=== PATIENT | female | born 1990 | race Caucasian/White ===

== ENCOUNTER 2016-08-14 16:01 | Emergency (ER) | payer MEDICAID ==
[~2016-08-14] VITALS: Ht 160 cm; Wt 90.7 kg
[~2016-08-14 16:01] MED LIST: NAPR550T PO
--- OUTSIDE RECORDS SUMMARY | 2016-08-14 16:07 | XMS REPORT | Continuity of Care Document ---
Author Author [facility] Organization [facility] Address Unknown Phone Unavailable Care Team Providers Care Hospital Medical Assistant Name Role Phone NO, LOCAL PHYSICIAN PCP Unavailable Insurance Providers Payer Name Policy Number Subscriber Name Relationship Unknown Christopher Ruth 16 Self / Same As Patient Advance Directives Directive Response Recorded Date/Time Advance Directives No 04/10/16 10:21am Resuscitation Status Full Code 04/10/16 10:21am Chief Complaint and Reason for Visit Chief Complaint Lower Extremity Reason for Visit Sprain and strain of foot Problems Active Problems Medical Problem Onset Date Status Sprain and strain of foot Unknown Acute Medications Current Home Medications Medication Dose Units Route Directions Days/Qty Instructions Start Date Naproxen Sodium (Naproxen) 550 Mg 550 Mg Oral Every 12 Hours as needed for Foot Pain/Swelling 20 04/10/16 Social History Social History Problem Response Recorded Date/Time Alcohol Use Occasionally Uses 04/10/2016 10:21am Recreational Drug Use No 04/10/2016 10:21am Recent Foreign Travel No 04/10/2016 10:19am Recent Infectious Disease Exposure No 04/10/2016 10:19am Hospitalization with Isolation Denies 04/10/2016 10:19am Smoking Status Current Everyday Smoker 04/10/2016 10:21am Recent Hopitalizations No 04/10/2016 10:21am Hospitalization with Isolation Denies 04/10/2016 10:19am Query Response Start Date Stop Date Smoking Status Current Everyday Smoker Hospital Discharge Instructions No hospital discharge instructions. Plan of Care Discharge Date 04/10/16 11:20am Disposition 01 HOME, SELF-CARE Condition at Discharge Stable Instructions/Education Provided Foot Sprain (ED) Prescriptions See Medication Section Referrals ARNIE NICHOLSON DO - Functional Status No functional status results. Allergies, Adverse Reactions, Alerts Allergen Type Severity Reaction Status Last Updated PCN Allergy Unknown Active 04/10/16 Immunizations No immunization records. Vital Signs Acute Vital Signs Vital Response Date/Time Temperature (Fahrenheit) 97.9 degrees F (97.6 - 99.5) 04/10/2016 10:19am Temperature (Calculated Celsius) 36.07214 degrees C (36.4 - 37.5) 04/10/2016 10:19am Temperature Source Temporal 04/10/2016 10:19am Pulse Rate (adult) 94 bpm (60 - 90) 04/10/2016 10:19am Respiratory Rate 20 bpm (12 - 24) 04/10/2016 10:19am Pain Numeric Pain Scale 8 04/10/2016 10:19am Height (Feet) 5 feet 04/10/2016 10:19am Height (Inches) 3 inches 04/10/2016 10:19am Height (Calculated Centimeters) 160.139350 cm 04/10/2016 10:19am Weight (Pounds) 230 pounds 04/10/2016 10:19am Weight (Calculated Kilograms) 104.043329 kilograms 04/10/2016 10:19am Capillary Refill Capillary Refill Less Than 3 Seconds 04/10/2016 10:19am Height 5 ft 3 in Weight 230 lb Body Mass Index 40.7 kg/m^2 Results No known relevant diagnostic tests, laboratory data and/or discharge summary. Procedures No known history of procedures. Encounters Encounter Location Arrival/Admit Date Discharge/Depart Date Attending Provider Departed Emergency Room [facility] 04/10/16 9:48am 04/10 11:20am OXANA SMITH DO Recent Diagnosis
[2016-08-14] MEDS ORDERED: KETOROLAC 30 MG/ML VIAL IVP ONE (16:30)
[2016-08-14] MEDS ORDERED: ONDANSETRON 4 MG/2 ML (SDV) Z0FRAN IVP ONE (16:30)
[2016-08-14 16:34] LABS: BASOPHILS % (AUTO) 0 % (0-10); EOSINOPHILS # (AUTO) 0.3 10^3/uL (0.0-0.3); EOSINOPHILS % (AUTO) 3 % (0-10); LYMPHOCYTES # (AUTO) 2.8 X 10^3 (1.0-4.0); LYMPHOCYTES % (AUTO) 28 % (12-44); MEAN CORPUSCULAR HEMOGLOBIN 30 PG (25-34); MEAN CORPUSCULAR HGB CONC 34 G/DL (32-36); MEAN CORPUSCULAR VOLUME 89 FL (80-99); MONOCYTES # (AUTO) 0.8 X 10^3 (0.0-1.0); MONOCYTES % (AUTO) 8 % (0-12); NEUTROPHILS # (AUTO) 6.3 X 10^3 (1.8-7.8); NEUTROPHILS % (AUTO) 62 % (42-75); PLATELET COUNT 265 10^3/uL (130-400); RED BLOOD COUNT 4.22 10^6/uL (4.35-5.85); RED CELL DISTRIBUTION WIDTH 12.7 % (10.0-14.5); WHITE BLOOD COUNT 10.2 10^3/uL (4.3-11.0)
[2016-08-14 16:34] LABS: BILIRUBIN,URINE NEGATIVE (NEGATIVE); KETONES,URINE NEGATIVE (NEGATIVE); LEUKOCYTE ESTERASE ,URINE NEGATIVE (NEGATIVE); NITRITE,URINE NEGATIVE (NEGATIVE); PH,URINE 6 (5-9); PROTEIN,URINE 1+ (NEGATIVE); UROBILINOGEN,URINE NORMAL (NORMAL)
--- NOTE | 2016-08-14 16:40 | ED GU-Female ---
General Chief Complaint: Abdominal/GI Problems Stated Complaint: L SIDE PAIN, ABD PAIN Nursing Triage Note: PT C/O L FLANK PAIN RADIATING TO HER BELLY. SHE ALSO C/O NAUSEA AND FEVER. SHE DENIES VOMITING, DYSURIA, HEMATURIA. Nursing Sepsis Screen: No Definite Risk Source: patient Exam Limitations: no limitations History of Present Illness Time seen by provider: 16:39 Initial Comments To ER with left low back pain that radiates to the left lower abdomen. She reports that she had a fever at home but is unsure how high. She reports urinary frequency but no nausea or vomiting but no dysuria otherwise. She reports nausea but no vomiting. Symptoms began this morning. She has chronic diarrhea she states. Timing/Duration: just prior to arrival Severity/Quality: moderate Location: left flank Radiation: none Prior Genitourinary Problems: none Associated Symptoms: dysuria Allergies and Home Medications Allergies Uncoded Allergies: PCN (Allergy, Unknown, 04/10/16) Home Medications Naproxen Sodium 550 Mg Tablet #20 550 MG PO Q12H PRN PRN foot pain/swelling Prescribed by: OXANA SMITH on 04/10/16 1110 Constitutional: see HPINo chills, No fever EENTM: see HPI Respiratory: no symptoms reported Cardiovascular: no symptoms reported Genitourinary: see HPI frequency Musculoskeletal: no symptoms reported Skin: no symptoms reported Psychiatric/Neurological: No Symptoms Reported Past Ncxquyn-Rznzpi-Nbfijh Hx Patient Social History Alcohol Use: Denies Use Recreational Drug Use: No Smoking Status: Current Everyday Smoker Recent Foreign Travel: No Contact w/Someone Who Travel: No Recent Infectious Disease Expo: No Recent Hopitalizations: No Physical Abuse Screen: No Sexual Abuse: No Seasonal Allergies Seasonal Allergies: No Surgeries HX Surgeries: Yes Surgeries: Gallbladder, Tubal Ligation Respiratory Hx Respiratory Disorders: No Cardiovascular Hx Cardiac Disorders: Yes (DOES NOT TAKE MEDS) Cardiac Disorders: Hypertension Neurological Hx Neurological Disorders: No Reproductive System Hx Reproductive Disorders: No Genitourinary Hx Genitourinary Disorders: No Gastrointestinal Hx Gastrointestinal Disorders: No Musculoskeletal Hx Musculoskeletal Disorders: No Endocrine Hx Endocrine Disorders: No HEENT HX ENT Disorders: No Cancer Hx Cancer: No Psychosocial Hx Psychiatric Problems: Yes Behavioral Health Disorders: Anxiety, Bipolar, Depression Physical Exam Vital Signs Vital Sign - Last 12Hours 08/14/16 16:18 Temp 98.4 Pulse 85 Resp 16 B/P 155/89 Pulse Ox 97 O2 Delivery Room Air Capillary Refill : Less Than 3 Seconds General Appearance: WD/WN no apparent distress obese HEENT: PERRL/EOMI normal ENT inspection Neck: non-tender full range of motion Cardiovascular: regular rate, rhythm no murmur Respiratory: lungs clear normal breath sounds no respiratory distress no accessory muscle use Gastrointestinal: normal bowel sounds non tender soft Back: No CVA tenderness (R), CVA tenderness (L) Extremities: normal range of motion non-tender Neurologic/Psychiatric: alert normal mood/affect oriented x 3 Skin: normal color warm/dry Progress/Results/Core Measures Results/Orders Lab Results Laboratory Tests Test 08/14/16 16:17 08/14/16 16:24 Range/Units Urine Bacteria NEGATIVE /HPF Urine Bilirubin NEGATIVE NEGATIVE Urine Casts NONE /LPF Urine Clarity CLEAR Urine Color YELLOW Urine Crystals NONE /LPF Urine Culture Indicated NO Urine Glucose (UA) NEGATIVE NEGATIVE Urine Ketones NEGATIVE NEGATIVE Urine Leukocyte Esterase NEGATIVE NEGATIVE Urine Mucus SMALL H /LPF Urine Nitrite NEGATIVE NEGATIVE Urine Test NEGATIVE NEGATIVE Urine Protein 1+ H NEGATIVE Urine RBC 5-10 H /HPF Urine RBC (Auto) 3+ H NEGATIVE Urine Specific [place] 1.020 1.016-1.022 Urine Squamous Epithelial Cells 25-50 H /HPF Urine Urobilinogen NORMAL NORMAL MG/DL Urine WBC NONE /HPF Urine pH 6 5-9 Alanine Aminotransferase (ALT/SGPT) 32 0-55 U/L Albumin 4.2 3.2-4.5 G/DL Alkaline Phosphatase 76 40-136 U/L Anion Gap 10 5-14 MMOL/L Aspartate Amino Transf (AST/SGOT) 21 5-34 U/L BUN/Creatinine Ratio 14 Basophils # (Auto) 0.0 0.0-0.1 10^3/uL Basophils (%) (Auto) 0 0-10 % Blood Urea Nitrogen 11 7-18 MG/DL Calcium Level 9.0 8.5-10.1 MG/DL Carbon Dioxide Level 22 21-32 MMOL/L Chloride Level 106 98-107 MMOL/L Creatinine 0.76 0.60-1.30 MG/DL Eosinophils # (Auto) 0.3 0.0-0.3 10^3/uL Eosinophils (%) (Auto) 3 0-10 % Estimat Glomerular Filtration Rate > 60 Glucose Level 88 70-105 MG/DL Hematocrit 37 35-52 % Hemoglobin 12.8 11.5-16.0 G/DL Lymphocytes # (Auto) 2.8 1.0-4.0 X 10^3 Lymphocytes (%) (Auto) 28 12-44 % Mean Corpuscular Hemoglobin 30 25-34 PG Mean Corpuscular Hemoglobin Concent 34 32-36 G/DL Mean Corpuscular Volume 89 80-99 FL Mean Platelet Volume 11.0 H 7.4-10.4 FL Monocytes # (Auto) 0.8 0.0-1.0 X 10^3 Monocytes (%) (Auto) 8 0-12 % Neutrophils # (Auto) 6.3 1.8-7.8 X 10^3 Neutrophils (%) (Auto) 62 42-75 % Platelet Count 265 130-400 10^3/uL Potassium Level 3.3 L 3.6-5.0 MMOL/L Red Blood Count 4.22 L 4.35-5.85 10^6/uL Red Cell Distribution Width 12.7 10.0-14.5 % Sodium Level 138 135-145 MMOL/L Total Bilirubin 0.4 0.1-1.0 MG/DL Total Protein 7.0 6.4-8.2 G/DL White Blood Count 10.2 4.3-11.0 10^3/uL My Orders Orders-TIM NGUYEN APRN Saline Lock/Iv-Start (08/14/16 16:27) Ua Culture If Indicated (08/14/16 16:27) Cbc With Automated Diff (08/14/16 16:27) Hcg,Qualitative Urine (08/14/16 16:27) Comprehensive Metabolic Panel (08/14/16 16:27) Ondansetron Injection (Zofran Injectio (08/14/16 16:30) Ketorolac Injection (Toradol Injection) (08/14/16 16:30) Ct Abd/Pelvis Wo(Kidney Stone) (08/14/16 16:45) Medications Given in ED Current Medications Medications Dose Ordered Sig/Abhilash Route Start Time Stop Time Status Last Admin Dose Admin Ketorolac Tromethamine 30 mg ONCE ONCE IVP 08/14/16 16:30 08/14/16 16:31 DC 08/14/16 16:35 30 MG Ondansetron HCl 4 mg ONCE ONCE IVP 08/14/16 16:30 08/14/16 16:31 DC 08/14/16 16:35 4 MG Vital Signs/I&O Vital Sign - Last 12Hours 08/14/16 16:18 Temp 98.4 Pulse 85 Resp 16 B/P 155/89 Pulse Ox 97 O2 Delivery Room Air Blood Pressure Mean: 111 Departure Impression Impression: Primary Impression: Musculoskeletal left flank pain Disposition: HOME, SELF-CARE Condition: Stable Departure-Patient Inst. Decision time for Depature: 17:03 Referrals: NO,LOCAL PHYSICIAN (PCP/Family) Primary Care Physician Patient Instructions: Low Back Pain in Adults Add. Discharge Instructions: 1. Tylenol and Motrin for pain 2. Muscle relaxers as directed 3. Follow up wiht your regular doctor later this week for recheck. Return to ER for any worsening All discharge instructions reviewed with patient and/or family. Voiced understanding. Scripts [flexeril] No Conflict Check5 Mg PO TID PRN PAIN #15 Prov:TIM NGUYEN APRN 08/14/16 Work/School Note: Family Work Note Patient Received Medical Care In the Emergency Department On: Aug 14, 2016 Patient Will Be Able to Return to Work/School On: Aug 15, 2016 TIM NGUYEN APRN Aug 14, 2016 16:40
[2016-08-14 16:43] LABS: SQUAMOUS EPITHELIAL CELL,UR 25-50 /HPF
[2016-08-14 16:52] LABS: ALANINE AMINOTRANSFERASE 32 U/L (0-55); ALBUMIN 4.2 G/DL (3.2-4.5); ANION GAP 10 MMOL/L (5-14); ASPARTATE AMINO TRANSFERASE 21 U/L (5-34); BILIRUBIN,TOTAL 0.4 MG/DL (0.1-1.0); BLOOD UREA NITROGEN 11 MG/DL (7-18); BUN/CREATININE RATIO 14; CARBON DIOXIDE 22 MMOL/L (21-32); CHLORIDE 106 MMOL/L (98-107); CREATININE SERUM 0.76 MG/DL (0.60-1.30); GFR ESTIMATED > 60; GLUCOSE 88 MG/DL (70-105); POTASSIUM 3.3 MMOL/L (3.6-5.0); SODIUM 138 MMOL/L (135-145)
[2016-08-14] MEDS ORDERED: flexeril PO (17:04)
--- NOTE | 2016-08-14 17:17 | Diagnostic Imaging Report ---
PROCEDURE: CT urinary tract, rule out kidney stone. TECHNIQUE: Multiple contiguous axial images were obtained through the abdomen and pelvis without the use of intravenous contrast. INDICATION: Abdominal pain. COMPARISON: None available. FINDINGS: A 3 mm subpleural pulmonary nodule within the left lower lobe, series 2, image 20. Otherwise, the visualized lung bases are clear. Cholecystectomy. The unenhanced liver, spleen, adrenal glands, and pancreas are unremarkable. The kidneys and ureters are unremarkable without evidence of stones or obstruction. No aneurysmal dilatation of the abdominal aorta. The urinary bladder is unremarkable. The uterus and adnexal structures are unremarkable for age. The colon is decompressed and demonstrates diffuse mural thickening without adjacent inflammatory stranding. The appendix is unremarkable. No bowel obstruction or pneumatosis. No significant adenopathy, free air, or free fluid within the abdomen or pelvis. Scattered osseous degenerative changes without acute osseous abnormality. IMPRESSION: 1. Poor distention of the colon with associated diffuse mural thickening. These findings may relate to poor distention, though colitis should be considered. There is, however, no evidence of bowel obstruction or pneumatosis. 2. 3 mm pulmonary nodule within the left lower lobe. If the patient is at high risk for lung cancer, a CT of the chest is recommended in one year. If the patient is at low risk for lung cancer, no definitive followup is necessary. 3. Additional postsurgical findings as above. Dictated by: Dictated on workstation # [id number]
[2016-08-14 17:29] VITALS: BP 155/89
== END 2016-08-14 17:29 | disposition home or self-care (01) ==
LOC: EDUNIT# 16:01 → ER 16:03
DX: R10.32 Left lower quadrant pain (principal); R91.1 Solitary pulmonary nodule; R11.0 Nausea; R50.9 Fever, unspecified; F17.210 Nicotine dependence, cigarettes, uncomplicated
CPT/HCPCS: 36415; 74176; 80053; 81000; 84703; 85025; 96374; 96375

== ENCOUNTER 2016-12-06 19:12 | Emergency (ER) | payer MEDICAID ==
[~2016-12-06] VITALS: Ht 160 cm; Wt 104.3 kg
[~2016-12-06 19:12] MED LIST changes: +flexeril PO
[2016-12-06] MEDS ORDERED: ALPRAZolam 0.5 MG (XANAX) TAB PO SCH (19:45)
--- NOTE | 2016-12-06 19:46 | ED Chest Pain ---
General Chief Complaint: Chest Pain Stated Complaint: CHEST PAIN Nursing Triage Note: PT TO ED W/ C/O "NOT FEELING WELL" ONSET ALL DAY W/ ONSET CP 2-3HRS [employer]. REPORTS SHE WOKE FROM HER NAP W/ COMPLAINT. DENIES N/V/D, SOA, DIAPHORESIS AT THIS TIME. Nursing Sepsis Screen: No Definite Risk Source: patient Exam Limitations: no limitations History of Present Illness Time seen by provider: 19:45 Initial Comments To ER with central chest pain. This is gotten worse throughout the day after awakening this morning. She does report feeling short of breath as well as some palpitations. No history of this. No fevers or chills. No cough. 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 Associated Symptoms: No abdominal pain, No back pain, No diaphoresis, No dizziness, No edema, No nausea/vomiting Allergies and Home Medications Allergies Uncoded Allergies: PCN (Allergy, Unknown, 04/10/16) Home Medications No Active Prescriptions or Reported Meds Review of Systems Constitutional: see HPI EENTM: No Symptoms Reported Respiratory: See HPI, Shortness of Air Cardiovascular: See HPI, Chest Pain, Denies Edema, Denies Irregular Heart Rate , Denies Lightheadedness, Palpitations, Denies Syncope Gastrointestinal: No Symptoms Reported Genitourinary: No Symptoms Reported Musculoskeletal: no symptoms reported Skin: no symptoms reported Psychiatric/Neurological: No Symptoms Reported Endocrine: No Symptoms Reported Past Zqkopfy-Zztrnt-Hvpyvb Hx Patient Social History Alcohol Use: Occasionally Uses Recreational Drug Use: No Smoking Status: Current Everyday Smoker Type Used: Cigarettes Recent Foreign Travel: No Contact w/Someone Who Travel: No Recent Infectious Disease Expo: No Recent Hopitalizations: No Seasonal Allergies Seasonal Allergies: No Surgeries HX Surgeries: Yes Surgeries: Gallbladder, Tubal Ligation Respiratory Hx Respiratory Disorders: No Cardiovascular Hx Cardiac Disorders: Yes (DOES NOT TAKE MEDS) Cardiac Disorders: Hypertension Neurological Hx Neurological Disorders: No Reproductive System Hx Reproductive Disorders: No Genitourinary Hx Genitourinary Disorders: No Gastrointestinal Hx Gastrointestinal Disorders: No Musculoskeletal Hx Musculoskeletal Disorders: No Endocrine Hx Endocrine Disorders: No HEENT HX ENT Disorders: No Cancer Hx Cancer: No Psychosocial Hx Psychiatric Problems: Yes Behavioral Health Disorders: Anxiety, Bipolar, Depression Physical Exam Vital Signs Vital Sign - Last 12Hours 12/06/16 19:28 Temp 98.1 Pulse 94 Resp 20 B/P (MAP) 145/91 Pulse Ox 98 O2 Delivery Room Air Capillary Refill : Less Than 3 Seconds General Appearance: No Apparent Distress, WD/WN, Anxious HEENT: PERRL/EOMI, TMs Normal Neck: Full Range of Motion, Normal Inspection Respiratory: No Accessory Muscle Use, No Respiratory Distress Cardiovascular: Regular Rate, Rhythm, Normal Peripheral Pulses Gastrointestinal: Normal Bowel Sounds, Non Tender, Soft Extremity: Normal Capillary Refill, Normal Inspection Neurologic/Psychiatric: Alert, Oriented x3 Skin: Normal Color, Warm/Dry Progress/Results/Core Measures Results/Orders Lab Results Laboratory Tests Test 12/06/16 20:00 Range/Units White Blood Count 12.0 H 4.3-11.0 10^3/uL Red Blood Count 4.26 L 4.35-5.85 10^6/uL Hemoglobin 12.8 11.5-16.0 G/DL Hematocrit 38 35-52 % Mean Corpuscular Volume 89 80-99 FL Mean Corpuscular Hemoglobin 30 25-34 PG Mean Corpuscular Hemoglobin Concent 34 32-36 G/DL Red Cell Distribution Width 12.4 10.0-14.5 % Platelet Count 250 130-400 10^3/uL Mean Platelet Volume 10.7 H 7.4-10.4 FL Neutrophils (%) (Auto) 59 42-75 % Lymphocytes (%) (Auto) 30 12-44 % Monocytes (%) (Auto) 8 0-12 % Eosinophils (%) (Auto) 3 0-10 % Basophils (%) (Auto) 0 0-10 % Neutrophils # (Auto) 7.1 1.8-7.8 X 10^3 Lymphocytes # (Auto) 3.5 1.0-4.0 X 10^3 Monocytes # (Auto) 0.9 0.0-1.0 X 10^3 Eosinophils # (Auto) 0.4 H 0.0-0.3 10^3/uL Basophils # (Auto) 0.1 0.0-0.1 10^3/uL D-Dimer 0.54 H 0.00-0.49 UG/ML Urine Color YELLOW Urine Clarity CLEAR Urine pH 7 5-9 Urine Specific [place] 1.015 L 1.016-1.022 Urine Protein NEGATIVE NEGATIVE Urine Glucose (UA) NEGATIVE NEGATIVE Urine Ketones NEGATIVE NEGATIVE Urine Nitrite NEGATIVE NEGATIVE Urine Bilirubin NEGATIVE NEGATIVE Urine Urobilinogen NORMAL NORMAL MG/DL Urine Leukocyte Esterase NEGATIVE NEGATIVE Urine RBC (Auto) 4+ H NEGATIVE Urine RBC 5-10 H /HPF Urine WBC 0-2 /HPF Urine Squamous Epithelial Cells 0-2 /HPF Urine Crystals NONE /LPF Urine Bacteria TRACE /HPF Urine Casts NONE /LPF Urine Mucus SMALL H /LPF Urine Culture Indicated NO Sodium Level 140 135-145 MMOL/L Potassium Level 3.4 L 3.6-5.0 MMOL/L Chloride Level 109 H 98-107 MMOL/L Carbon Dioxide Level 22 21-32 MMOL/L Anion Gap 9 5-14 MMOL/L Blood Urea Nitrogen 13 7-18 MG/DL Creatinine 0.78 0.60-1.30 MG/DL Estimat Glomerular Filtration Rate > 60 BUN/Creatinine Ratio 17 Glucose Level 88 70-105 MG/DL Calcium Level 9.2 8.5-10.1 MG/DL Total Bilirubin 0.3 0.1-1.0 MG/DL Aspartate Amino Transf (AST/SGOT) 16 5-34 U/L Alanine Aminotransferase (ALT/SGPT) 22 0-55 U/L Alkaline Phosphatase 61 40-136 U/L Total Protein 6.9 6.4-8.2 G/DL Albumin 4.1 3.2-4.5 G/DL Thyroid Stimulating Hormone (TSH) 1.54 0.35-4.94 UIU/ML Urine Opiates Screen NEGATIVE NEGATIVE Urine Oxycodone Screen NEGATIVE NEGATIVE Urine Methadone Screen NEGATIVE NEGATIVE Urine Propoxyphene Screen NEGATIVE NEGATIVE Urine Barbiturates Screen NEGATIVE NEGATIVE Ur Tricyclic Antidepressants Screen NEGATIVE NEGATIVE Urine Phencyclidine Screen NEGATIVE NEGATIVE Urine Amphetamines Screen NEGATIVE NEGATIVE Urine Methamphetamines Screen NEGATIVE NEGATIVE Urine Benzodiazepines Screen NEGATIVE NEGATIVE Urine Cocaine Screen NEGATIVE NEGATIVE Urine Cannabinoids Screen POSITIVE H NEGATIVE My Orders Orders - TIM NGUEYN APRN Chest Pa/Lat (2 View) (12/06/16 19:44) Ekg Tracing (12/06/16 19:44) Ua Culture If Indicated (12/06/16 19:44) Drug Screen Stat (Urine) (12/06/16 19:44) Urine Bedside (12/06/16 19:44) Saline Lock/Iv-Start (12/06/16 19:44) Cbc With Automated Diff (12/06/16 19:44) Comprehensive Metabolic Panel (12/06/16 19:44) Thyroid Stimulating Hormone (12/06/16 19:44) Fibrin Degradation Products (12/06/16 19:44) Alprazolam Tablet (Xanax Tablet) (12/06/16 19:45) Ct Angio Chest W (12/06/16 20:31) Ketorolac Injection (Toradol Injection) (12/06/16 20:45) Ns Iv 500 Ml (Sodium Chloride 0.9%) (12/06/16 20:45) Iohexol Injection (Omnipaque 350 Mg/Ml 1 (12/06/16 20:45) Ns (Ivpb) (Sodium Chloride 0.9% Ivpb Bag (12/06/16 20:45) Sodium Chloride Flush (Catheter Flush Sy (12/06/16 20:45) Medications Given in ED Current Medications Medications Dose Ordered Sig/Abhilash Route Start Time Stop Time Status Last Admin Dose Admin Iohexol 150 ml ONCE ONCE IV 12/06/16 20:45 12/06/16 20:46 DC 12/06/16 20:38 125 ML Ketorolac Tromethamine 30 mg ONCE ONCE IVP 12/06/16 20:45 12/06/16 20:46 DC 12/06/16 20:57 30 MG Sodium Chloride 10 ml NEEDED PRN IV 12/06/16 20:45 12/06/16 20:39 10 ML Sodium Chloride 100 ml ONCE ONCE IV 12/06/16 20:45 12/06/16 20:46 DC 12/06/16 20:38 80 ML Vital Signs/I&O Vital Sign - Last 12Hours 12/06/16 19:28 Temp 98.1 Pulse 94 Resp 20 B/P (MAP) 145/91 Pulse Ox 98 O2 Delivery Room Air Blood Pressure Mean: 109 Diagnostic Imaging Diagonstic Imaging: Xray, CT Comments NAME: PRERNACHRISTOPHER MED REC#: [id number] PT STATUS: REG ER : 1990 PHYSICIAN: TIM NGUYEN APRN ADMIT DATE: 12/06/16/ER Draft Date of Exam:12/06/16 CT ANGIO CHEST W PROCEDURE: CT angiography of the chest with contrast. TECHNIQUE: Multiple contiguous axial images were obtained through the chest after uneventful bolus administration of intravenous contrast. Reconstructed CTA MIP acquisitions were also performed. INDICATION: Upper right chest pain for 1 day. COMPARISON: None. DISCUSSION: No pulmonary embolus identified. No focal consolidation or suspicious pulmonary nodule. The gallbladder is surgically absent. Diffuse fatty infiltration of liver is present. Mild splenomegaly. Normal heart size. No pleural or pericardial fluid. No mediastinal, hilar, or axillary adenopathy. The thyroid gland is unremarkable. The thoracic aorta is normal in caliber and configuration. The pulmonary arteries are not dilated. IMPRESSION: 1. No pulmonary embolus or other acute abnormality identified within the chest. 2. Fatty infiltration of liver. 3. Mild splenomegaly. Dictated on workstation # [id number] Dict: 12/06/16 2056 Trans: 12/06/16 2100 [id number] Interpreted by: ZACK GALAN MD Electronically signed by: Departure Impression Impression: Primary Impression: Palpitations Additional Impression: Dyspnea Disposition: 01 HOME, SELF-CARE Condition: Stable Departure-Patient Inst. Decision time for Depature: 21:06 Referrals: NO,LOCAL PHYSICIAN (PCP/Family) Primary Care Physician Patient Instructions: Chest Pain That Is Not Caused by the Heart (DC) Add. Discharge Instructions: 1. Follow-up with your regular doctor later this week 2. Return to ER for any concerns 3. All discharge instructions reviewed with patient and/or family. Voiced understanding. Scripts No Active Prescriptions or Reported Meds Work/School Note: Work Release Form Date Seen in the Emergency Department: December 06, 2016 Return to Work: December 08, 2016 TIM NGUYEN APRN December 06, 2016 19:46
[2016-12-06 20:09] LABS: BASOPHILS # (AUTO) 0.1 10^3/uL (0.0-0.1); BASOPHILS % (AUTO) 0 % (0-10); BILIRUBIN,URINE NEGATIVE (NEGATIVE); EOSINOPHILS # (AUTO) 0.4 10^3/uL (0.0-0.3); EOSINOPHILS % (AUTO) 3 % (0-10); KETONES,URINE NEGATIVE (NEGATIVE); LEUKOCYTE ESTERASE ,URINE NEGATIVE (NEGATIVE); LYMPHOCYTES # (AUTO) 3.5 X 10^3 (1.0-4.0); LYMPHOCYTES % (AUTO) 30 % (12-44); MEAN CORPUSCULAR HEMOGLOBIN 30 PG (25-34); MEAN CORPUSCULAR HGB CONC 34 G/DL (32-36); MEAN CORPUSCULAR VOLUME 89 FL (80-99); MEAN PLATELET VOLUME 10.7 FL (7.4-10.4); MONOCYTES # (AUTO) 0.9 X 10^3 (0.0-1.0); MONOCYTES % (AUTO) 8 % (0-12); NEUTROPHILS # (AUTO) 7.1 X 10^3 (1.8-7.8); NEUTROPHILS % (AUTO) 59 % (42-75); NITRITE,URINE NEGATIVE (NEGATIVE); PH,URINE 7 (5-9); PLATELET COUNT 250 10^3/uL (130-400); PROTEIN,URINE NEGATIVE (NEGATIVE); RED BLOOD COUNT 4.26 10^6/uL (4.35-5.85); RED CELL DISTRIBUTION WIDTH 12.4 % (10.0-14.5); UROBILINOGEN,URINE NORMAL (NORMAL)
[2016-12-06 20:23] LABS: SQUAMOUS EPITHELIAL CELL,UR 0-2 /HPF; WBC,URINE 0-2 /HPF
--- NOTE | 2016-12-06 20:29 | Diagnostic Imaging Report ---
INDICATION: Upper right chest pain starting today. DISCUSSION: Two views of the chest were obtained, no comparison. The heart and lungs are normal. No acute osseous abnormality identified. IMPRESSION: 1. Normal chest. Dictated by: Dictated on workstation # [id number]
[2016-12-06 20:30] LABS: ALANINE AMINOTRANSFERASE 22 U/L (0-55); ALBUMIN 4.1 G/DL (3.2-4.5); ANION GAP 9 MMOL/L (5-14); ASPARTATE AMINO TRANSFERASE 16 U/L (5-34); BILIRUBIN,TOTAL 0.3 MG/DL (0.1-1.0); BLOOD UREA NITROGEN 13 MG/DL (7-18); BUN/CREATININE RATIO 17; CALCIUM 9.2 MG/DL (8.5-10.1); CARBON DIOXIDE 22 MMOL/L (21-32); CHLORIDE 109 MMOL/L (98-107); CREATININE SERUM 0.78 MG/DL (0.60-1.30); GFR ESTIMATED > 60; GLUCOSE 88 MG/DL (70-105); POTASSIUM 3.4 MMOL/L (3.6-5.0); SODIUM 140 MMOL/L (135-145); TOTAL PROTEIN 6.9 G/DL (6.4-8.2)
[2016-12-06] MEDS ORDERED: IOHEXOL 350 MG/ML 150 ML (OMNIPAQUE 350) VIAL IV ONE (20:45)
[2016-12-06] MEDS ORDERED: NS IV 500 ML 500 ML IV SCH (20:45)
[2016-12-06] MEDS ORDERED: KETOROLAC 30 MG/ML VIAL IVP ONE (20:45)
[2016-12-06] MEDS ORDERED: NS 100 ML (IVPB) BAG IV ONE (20:45)
[2016-12-06] MEDS ORDERED: CATHETER FLUSH 10 ML SYR IV PRN (20:45)
[2016-12-06 20:49] LABS: THYROID STIMULATING HORMONE 1.54 UIU/ML (0.35-4.94)
--- NOTE | 2016-12-06 21:01 | Diagnostic Imaging Report ---
PROCEDURE: CT angiography of the chest with contrast. TECHNIQUE: Multiple contiguous axial images were obtained through the chest after uneventful bolus administration of intravenous contrast. Reconstructed CTA MIP acquisitions were also performed. INDICATION: Upper right chest pain for 1 day. COMPARISON: None. DISCUSSION: No pulmonary embolus identified. No focal consolidation or suspicious pulmonary nodule. The gallbladder is surgically absent. Diffuse fatty infiltration of liver is present. Mild splenomegaly. Normal heart size. No pleural or pericardial fluid. No mediastinal, hilar, or axillary adenopathy. The thyroid gland is unremarkable. The thoracic aorta is normal in caliber and configuration. The pulmonary arteries are not dilated. IMPRESSION: 1. No pulmonary embolus or other acute abnormality identified within the chest. 2. Fatty infiltration of liver. 3. Mild splenomegaly. Dictated by: Dictated on workstation # [id number]
[2016-12-06 21:19] VITALS: BP 182/104
== END 2016-12-06 21:19 | disposition home or self-care (01) ==
LOC: EDUNIT# 19:12 → ER 19:14
DX: R00.2 Palpitations (principal); R06.00 Dyspnea, unspecified; I10 Essential (primary) hypertension; K76.0 Fatty (change of) liver, not elsewhere classified; F17.210 Nicotine dependence, cigarettes, uncomplicated
CPT/HCPCS: 36415; 71020; 71275; 80053; 80306; 81000; 84443; 84703; 85025; 85379; 93005; 96374

== ENCOUNTER 2017-04-05 11:27 | Emergency (ER) | payer MEDICAID ==
[~2017-04-05] VITALS: Ht 160 cm; Wt 99.8 kg
--- OUTSIDE RECORDS SUMMARY | 2017-04-05 11:33 | XMS REPORT ---
Author Author ZACK LEE [facility] Address [address] [place] [address] Care Team Providers Care Clerical Support Name Role Phone ZACK LEE Unavailable PROBLEMS Type Condition ICD9-CM Code UTO90-OF Code Onset Dates Condition Status SNOMED Code Problem Gastroesophageal reflux disease without esophagitis K21.9 Active 388080208 Problem Essential hypertension I10 Active 09462758 Problem Bipolar affective disorder, currently manic, mild F31.11 Active 600262512 Problem Obesity (BMI 30-39.9) E66.9 Active 337885895 Problem Missed period N92.6 Active 35179989 Problem Dysthymia F34.1 Active 87080208 Problem Personality disorder, unspecified F60.9 Active 99616227 Problem Unspecified mood [affective] disorder F39 Active 01482328 Problem Anxiety state, unspecified F41.1 Active 634879948 ALLERGIES Substance Reaction Event Type Date Status Penicillamine Hives Drug Allergy Jul, Active SOCIAL HISTORY No smoking Hx information available PLAN OF CARE Activity Details Follow Up 4 Weeks Reason: VITAL SIGNS Height 65.0 in 2016-08-15 Weight 233.0 lbs 2016-08-15 Temperature 98.7 degrees Fahrenheit 2016-08-15 Heart Rate 84 bpm 2016-08-15 Respiratory Rate 20 2016-08-15 BMI 38.77 kg/m2 2016-08-15 Blood pressure systolic 155 mmHg 2016-08-15 Blood pressure diastolic 100 mmHg 2016-08-15 MEDICATIONS Medication Instructions Dosage Frequency Start Date End Date Duration Status Lisinopril 20 mg Orally Once a day 1 tablet 24h Jul, Active Ranitidine HCl 150 MG Orally Once a day 1 tablet 24h Jul, Active RESULTS No Results PROCEDURES Procedure Date Ordered Related Diagnosis Body Site Office Visit, New Pt., Level 3 Aug 15, 2016 IMMUNIZATIONS No Known Immunizations
--- OUTSIDE RECORDS SUMMARY | 2017-04-05 11:33 | XMS REPORT ---
Author Author ZACK LEE [facility] Address [address] [place] [address] Care Team Providers Care Electronic Service Technician Name Role Phone ZACK LEE Unavailable PROBLEMS Type Condition ICD9-CM Code MHY95-AQ Code Onset Dates Condition Status SNOMED Code Problem Gastroesophageal reflux disease without esophagitis K21.9 Active 195206111 Problem Essential hypertension I10 Active 85431566 Problem Bipolar affective disorder, currently manic, mild F31.11 Active 119556329 Problem Obesity (BMI 30-39.9) E66.9 Active 061743354 Problem Missed period N92.6 Active 61416634 Problem Dysthymia F34.1 Active 88652699 Problem Personality disorder, unspecified F60.9 Active 14551114 Problem Unspecified mood [affective] disorder F39 Active 57893978 Problem Anxiety state, unspecified F41.1 Active 041307867 ALLERGIES No Known Allergies SOCIAL HISTORY No smoking Hx information available PLAN OF CARE VITAL SIGNS MEDICATIONS No Known Medications RESULTS No Results PROCEDURES No Known procedures IMMUNIZATIONS No Known Immunizations
[2017-04-05] MEDS ORDERED: [UNRECOGNIZED DRUG - REMARK] (11:42)
[2017-04-05 12:33] LABS: BILIRUBIN,URINE NEGATIVE (NEGATIVE); KETONES,URINE 1+ (NEGATIVE); LEUKOCYTE ESTERASE ,URINE 1+ (NEGATIVE); NITRITE,URINE NEGATIVE (NEGATIVE); PH,URINE 6 (5-9); PROTEIN,URINE 1+ (NEGATIVE); UROBILINOGEN,URINE 1 MG/DL (NORMAL)
--- NOTE | 2017-04-05 12:51 | Diagnostic Imaging Report ---
INDICATION: Right upper quadrant pain EXAMINATION: PA and lateral chest Heart size and pulmonary vascularity are normal. Lungs are clear. There are no effusions or pneumothoraces. IMPRESSION: Negative chest. Dictated by: Dictated on workstation # [id number]
--- NOTE | 2017-04-05 12:52 | Diagnostic Imaging Report ---
INDICATION: Right upper quadrant abdominal pain. KUB at 12:58 PM Gallbladder appears to be surgically absent. There is a 4 mm calcification medial aspect of the upper pole right kidney that could be a calculus. Bowel gas pattern is normal. There are no masses seen. IMPRESSION: Questionable right renal calculus. Dictated by: Dictated on workstation # [id number]
[2017-04-05] MEDS ORDERED: ONDA4TAB8 SL (14:10)
--- NOTE | 2017-04-05 14:12 | ED Abdominal Pain ---
General Chief Complaint: Abdominal/GI Problems Stated Complaint: ABD PAIN/SIDE PAIN/HEADACHE/EAR ACHE Nursing Triage Note: ARRIVED VIA AMB TO ROOM 08 WITH COMPLAINTS OF RIGHT UPPER QUAD PAIN THAT RADIATES INTO BACK AND UP TO RIGHT SIDE OF HER NECK STARTING MONDAY. TODAY SHE TOOK OFF OF WORK DUE TO THE PAIN. Sepsis Screen: No Definite Risk (SARI LEONG MD) Source of Information: Patient Exam Limitations: No Limitations (RAYO HOFF) History of Present Illness Time Seen By Provider: 11:41 Initial Comments Christopher Ruth is a 27 year old female presenting to the ED with abdominal and back pain. She states the pain started Monday and got worse yesterday, but is slightly better today. It started in the RUQ, and now wraps around to the back and up into the neck and behind the ear. Right now it feels very sore but sometimes it feels "throbbing and stabbing, like when I had gallbladder attacks " before her cholecystectomy. She has had nausea without vomiting and a headache. She was dizzy on Monday but that has resolved. She has had chest pain and shortness of breath that she associates with anxiety but is not experiencing them now. Laying down helps some, and Aleve took the edge off. The pain does not change with food or bowel movements. She is still having bowel movements but they have decreased from 4 times a day normally to 1 to 2 times a day now. 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 (RAYO HOFF) Allergies and Home Medications Allergies Uncoded Allergies: PCN (Allergy, Unknown, 04/10/16) Home Medications Ondansetron 4 Mg Tab.rapdis, 4 MG SL Q4H PRN for NAUSEA/VOMITING-1ST LINE, #10 Prescribed by: SARI CARIAS on 04/05/17 1410 [Otc Refulx Med] , (Reported) Review of Systems Constitutional: no symptoms reported, dizziness (on Monday but none currently) EENTM: See HPI, Ear Pain (pain behind right ear), No Throat Pain Respiratory: See HPI, Shortness of Air (associated with anxiety, not currently experiencing) Cardiovascular: See HPI, Chest Pain (associated with anxiety, not currently experiencing) Gastrointestinal: See HPI, Abdominal Pain (RUQ), Denies Diarrhea, Difficulty Swallowing (chronically has trouble swallowing certain foods, not currently changed from normal), Nausea, Denies Poor Appetite, Denies Poor Fluid Intake, Denies Vomiting Genitourinary: Denies Burning, Denies Frequency, Flank Pain (right side), Denies Incontinence, Denies Pain, Denies Urgency Musculoskeletal: back pain (often has back pain, currently right side up into neck), neck pain (right side) Skin: no symptoms reported Psychiatric/Neurological: Anxiety (worse recently, not experiencing today), Headache Endocrine: No Symptoms Reported Hematologic/Lymphatic: No Symptoms Reported (RAYO HOFF) Past Yhwybtl-Ziikac-Qptazh Hx Patient Social History Alcohol Use: Occasionally Uses Recreational Drug Use: No Smoking Status: Current Everyday Smoker Type Used: Cigarettes Recent Foreign Travel: No Contact w/Someone Who Travel: No Recent Infectious Disease Expo: No Recent Hopitalizations: No (SARI LEONG MD) Seasonal Allergies Seasonal Allergies: No (SARI LEONG MD) Surgeries History of Surgeries: Yes Surgeries: Gallbladder, Tubal Ligation (SARI LEONG MD) Respiratory History of Respiratory Disorde: No (SARI LEONG MD) Cardiovascular History of Cardiac Disorders: Yes (DOES NOT TAKE MEDS) Cardiac Disorders: Hypertension (SARI LEONG MD) Cardiac Disorders: Valvular Heart Disease (tricuspid regurgitation- evaluated as a child, not currently followed by cardiology) (RAYO HOFF) Neurological History of Neurological Disord: No (SARI LEONG MD) Reproductive System Hx Reproductive Disorders: No (SARI LEONG MD) Genitourinary History of Genitourinary Disor: No (SARI LEONG MD) Gastrointestinal History of Gastrointestinal Di: Yes Gastrointestinal Disorders: Gastroesophageal Reflux (SARI LEONG MD) Musculoskeletal History of Musculoskeletal Dis: No (SARI LEONG MD) Endocrine History of Endocrine Disorders: No (SARI LEONG MD) HEENT History of HEENT Disorders: No (SARI LEONG MD) Cancer History of Cancer: No (SARI LEONG MD) Psychosocial History of Psychiatric Problem: Yes Behavioral Health Disorders: Anxiety, Bipolar, Depression (SARI LEONG MD) Behavioral Health Disorders: PTSD (RAYO HOFF) Integumentary History of Skin or Integumenta: No (SARI LEONG MD) Family Medical History Significant Family History: Psychiatric Problems (reports father was "crazy", does not know diagnosis), Other Conditions/Hx (mother- mitral valve prolapse) (RAYO HOFF) Physical Exam Vital Signs VS - Last 72 Hours, by Label 04/05/17 11:34 Temp 96.8 Pulse 92 Resp 16 B/P (MAP) 149/89 Pulse Ox 98 (RAYO HOFF) Vital Signs Capillary Refill : Less Than 3 Seconds (SARI LEONG MD) General Appearance: WD/WN, mild distress HEENT: PERRL/EOMI, normal ENT inspection, TMs normal, other (mild erythema of ear canal with tenderness on exam) Neck: full range of motion, normal inspection, tender lateral (both sides of spine, right worse than left) Respiratory: chest non-tender, lungs clear, normal breath sounds, no respiratory distress, no accessory muscle use Cardiovascular: regular rate, rhythm, no gallop, no JVD, no murmur Gastrointestinal: normal bowel sounds, soft, no organomegaly, no pulsatile mass , No guarding, No rebound, tenderness (RUQ tender to palpation) Back: no vertebral tenderness, CVA tenderness (R), No CVA tenderness (L), other (tenderness to palpation on right mid to upper back) Neurologic/Psychiatric: no motor/sensory deficits, alert, normal mood/affect, oriented x 3 Skin: normal color, warm/dry (RAYO OHFF) Progress/Results/Core Measures Results/Orders Lab Results Laboratory Tests Test 04/05/17 12:25 Range/Units Urine Color YELLOW Urine Clarity SLIGHTLY CLOUDY Urine pH 6 5-9 Urine Specific [place] 1.025 H 1.016-1.022 Urine Protein 1+ H NEGATIVE Urine Glucose (UA) NEGATIVE NEGATIVE Urine Ketones 1+ H NEGATIVE Urine Nitrite NEGATIVE NEGATIVE Urine Bilirubin NEGATIVE NEGATIVE Urine Urobilinogen 1 NORMAL MG/DL Urine Leukocyte Esterase 1+ H NEGATIVE Urine RBC (Auto) 3+ H NEGATIVE Urine RBC NONE /HPF Urine WBC 2-5 /HPF Urine Squamous Epithelial Cells 2-5 /HPF Urine Crystals NONE /LPF Urine Bacteria TRACE /HPF Urine Casts NONE /LPF Urine Mucus MODERATE H /LPF Urine Culture Indicated NO (RAYO HOFF) Vital Signs/I&O Vital Sign - Last 12Hours 04/05/17 11:34 Temp 96.8 Pulse 92 Resp 16 B/P (MAP) 149/89 Pulse Ox 98 (RAYO HOFF) Blood Pressure Mean: 109 Point of Care Testing Urine -Bedside: Negative (SARI LEONG MD) Progress Note : Progress Note This patient was interviewed, seen, and examined along with Rayo De Souza, MS4. I agree with MS4 history, exam, and assessment. Upon my exam patient is not to be alert and oriented and in no acute distress. Head was normal with normal tympanic membranes. Lungs were clear to auscultation bilaterally. Heart was regular rate and rhythm without murmur. Abdomen was soft and without distention. Body habitus made abdominal exam difficult. Patient seemed to be most tender in the right flank. She also had tenderness in the musculature of the middle and upper back extending up toward the shoulder. KUB and UA did not reveal cause of her pain. 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 She states she has a follow-up appointment to establish care at [facility] on April 09. She will consider obtaining blood work as an outpatient at that appointment. Abdominal x-ray did reveal a possible right renal calculus. However, this seemed to be within the kidney, not within the ureter. A calculus should not be causing her pain in this location. There are also no red blood cells in her urine. The finding and its implications were discussed with the patient. On exam, findings seem to suggest more musculoskeletal pain than an intra-abdominal problem. (SARI LEONG MD) Diagnostic Imaging Diagonstic Imaging: Xray Plain Films/CT/US/NM/MRI: chest Comments NAME: CHRISTOPHER RUTH [facility] REC#: [id number] PT STATUS: DEP ER : 1990 PHYSICIAN: SARI LEONG MD ADMIT DATE: 04/05/17/ER Signed Date of Exam: 04/05/17 CHEST PA/LAT (2 VIEW) INDICATION: Right upper quadrant pain EXAMINATION: PA and lateral chest Heart size and pulmonary vascularity are normal. Lungs are clear. There are no effusions or pneumothoraces. IMPRESSION: Negative chest. Dictated by: Dictated on workstation # [id number] Dict: 04/05/17 1246 Trans: 04/05/17 1551 Interpreted by: JERMAN ARELLANO MD Electronically signed by: JERMAN ARELLANO MD 04/05/17 155 Diagonstic Imaging: Xray Plain Films/CT/US/NM/MRI: abdomen Comments Abdominal x-ray viewed by me and report reviewed. See report below: NAME: CHRISTOPHER RUTH [facility] REC#: [id number] PT STATUS: DEP ER : 1990 PHYSICIAN: SARI LEONG MD ADMIT DATE: 04/05/17/ER Signed Date of Exam: 04/05/17 ABDOMEN/KUB 1VIEW INDICATION: Right upper quadrant abdominal pain. KUB at 12:58 PM Gallbladder appears to be surgically absent. There is a 4 mm calcification medial aspect of the upper pole right kidney that could be a calculus. Bowel gas pattern is normal. There are no masses seen. IMPRESSION: Questionable right renal calculus. Dictated by: Dictated on workstation # [id number] Dict: 04/05/17 1247 Trans: 04/05/17 1551 Interpreted by: JERMAN ARELLANO MD Electronically signed by: JERMAN ARELLANO MD 04/05/17 155 (SARI LEONG MD) Departure Impression Impression: Primary Impression: Right upper quadrant pain Additional Impressions: Nausea Upper back pain Disposition: 01 HOME, SELF-CARE Condition: Stable Departure-Patient Inst. Decision time for Depature: 14:07 (SARI LEONG MD) Referrals: NO,LOCAL PHYSICIAN (PCP/Family) Primary Care Physician Patient Instructions: Acute Abdomen (Belly Pain), Adult (DC) Add. Discharge Instructions: Drink plenty of clear liquids. Gradually advance your diet with small quantities of bland food as tolerated. Take an antacid such as Pepcid ( famotidine) 20 mg twice daily for at least the next 2 weeks and then as needed. You may use Aleve up to (but not more than) 500 mg twice daily as needed for pain. Take this with food or milk to avoid stomach upset. You may also take Tylenol (acetaminophen) up to 1000 mg every 6 hours as needed for additional pain relief. Gentle stretching and gentle heat to your back may also be helpful. Keep your appointment with [facility]. Return to the emergency room if symptoms worsen. There is question of a kidney stone in the right kidney, but this is not likely the cause of your pain. All discharge instructions reviewed with patient and/or family. Voiced understanding. Scripts Ondansetron (Zofran Odt) 4 Mg Tab.rapdis 4 MG SL Q4H Y for NAUSEA/VOMITING-1ST LINE, #10 TAB Prov: SARI LEONG MD 04/05/17 SARI LEONG MD Apr 05, 2017 14:12 RAYO HOFF Apr 05, 2017 14:33
[2017-04-05 14:14] VITALS: BP 180/97
== END 2017-04-05 14:14 | disposition home or self-care (01) ==
LOC: EDUNIT# 11:27 → ER 11:30
DX: I10 Essential (primary) hypertension; R10.11 Right upper quadrant pain; F31.9 Bipolar disorder, unspecified; R11.2 Nausea with vomiting, unspecified; K21.9 Gastro-esophageal reflux disease without esophagitis; M54.6 Pain in thoracic spine; F41.9 Anxiety disorder, unspecified; Z98.51 Tubal ligation status; Z90.49 Acquired absence of other specified parts of digestive tract; F17.210 Nicotine dependence, cigarettes, uncomplicated
CPT/HCPCS: 71020; 74000; 81000; 84703; 99282

== ENCOUNTER 2017-04-23 10:35 | Emergency (ER) | payer MEDICAID ==
[~2017-04-23] VITALS: Ht 160 cm; Wt 99.8 kg
[~2017-04-23 10:35] MED LIST changes: +ONDA4TAB8 SL; +[UNRECOGNIZED DRUG - REMARK]
--- OUTSIDE RECORDS SUMMARY | 2017-04-23 10:40 | XMS REPORT ---
Author Author [facility] Address [address] [place] [address] Care Team Providers Care Web Mobile Designer Name Role Phone SARAI BUTTS Unavailable PROBLEMS Type Condition ICD9-CM Code [id number] Code Onset Dates Condition Status SNOMED Code Problem Gastroesophageal reflux disease without esophagitis K21.9 Active 797127562 Problem Essential hypertension I10 Active 49936066 Problem Bipolar affective disorder, currently manic, mild F31.11 Active 191749094 Problem Obesity (BMI 30-39.9) E66.9 Active 916639705 Problem Missed period N92.6 Active 19279806 Problem Dysthymia F34.1 Active 27835867 Problem Personality disorder, unspecified F60.9 Active 09532528 Problem Unspecified mood [affective] disorder F39 Active 42138632 Problem Anxiety state, unspecified F41.1 Active 303196198 ALLERGIES Substance Reaction Event Type Date Status Penicillamine Hives Drug Allergy Sep, Active SOCIAL HISTORY Never Assessed PLAN OF CARE Activity Details Follow Up 1 Week Reason:with PCP- (get fasting labs done prior) VITAL SIGNS Height 65.0 in 2016-10-05 Weight 234.4 lbs 2016-10-05 Temperature 97.6 degrees Fahrenheit 2016-10-05 Heart Rate 88 bpm 2016-10-05 Respiratory Rate 20 2016-10-05 BMI 39.00 kg/m2 2016-10-05 Blood pressure systolic 132 mmHg 2016-10-05 Blood pressure diastolic 90 mmHg 2016-10-05 MEDICATIONS Medication Instructions Dosage Frequency Start Date End Date Duration Status Ranitidine HCl 150 MG Orally Once a day 1 tablet 24h Jul, Active Lisinopril 20 mg Orally Once a day 1 tablet 24h Jul, Active RESULTS Name Result Date Reference Range TEST, URINE (IN HOUSE) 2016-10-05 RESULTS negative Lot # [id number] Control + Exp date 2018-01-13 PROCEDURES Procedure Date Ordered Result Body Site URINE TEST October 05, 2016 IMMUNIZATIONS No Known Immunizations MEDICAL (GENERAL) HISTORY Type Description Date Medical History Hypertension Surgical History Tubal Ligation Surgical History Gallbladder Removal Hospitalization History Surgery/child Hospitalization History [facility]
--- OUTSIDE RECORDS SUMMARY | 2017-04-23 10:40 | XMS REPORT ---
Author Author MANDI Carrera [facility] Address [address] [place] [address] Care Team Providers Care Services Tech Name Role Phone MANDI Carrera Unavailable PROBLEMS Type Condition ICD9-CM Code RPJ34-CG Code Onset Dates Condition Status SNOMED Code Problem Gastroesophageal reflux disease without esophagitis K21.9 Active 536942186 Problem Essential hypertension I10 Active 43779688 Problem Bipolar affective disorder, currently manic, mild F31.11 Active 579142314 Problem Obesity (BMI 30-39.9) E66.9 Active 311867687 Problem Missed period N92.6 Active 99449279 Problem Dysthymia F34.1 Active 25861758 Problem Personality disorder, unspecified F60.9 Active 08813325 Problem Unspecified mood [affective] disorder F39 Active 17431990 Problem Anxiety state, unspecified F41.1 Active 956639321 ALLERGIES Substance Reaction Event Type Date Status Penicillamine Hives Drug Allergy Aug, Active SOCIAL HISTORY Never Assessed PLAN OF CARE Activity Details Follow Up 4 Weeks Reason: VITAL SIGNS Height 65.0 in 2016-08-26 Weight 236.1 lbs 2016-08-26 Heart Rate 92 bpm 2016-08-26 Respiratory Rate 20 2016-08-26 BMI 39.28 kg/m2 2016-08-26 Blood pressure systolic 122 mmHg 2016-08-26 Blood pressure diastolic 74 mmHg 2016-08-26 MEDICATIONS Medication Instructions Dosage Frequency Start Date End Date Duration Status Ranitidine HCl 150 MG Orally Once a day 1 tablet 24h Jul, Active Duloxetine HCl 60 MG Orally Once a day 1 capsule 24h Aug, 30 day(s) Active Duloxetine HCl 30 MG Orally Once a day 1 capsule 24h Aug, 07 days Active Lisinopril 20 mg Orally Once a day 1 tablet 24h Jul, Active RESULTS No Results PROCEDURES No Known procedures IMMUNIZATIONS No Known Immunizations MEDICAL (GENERAL) HISTORY Type Description Date Medical History Hypertension Surgical History Tubal Ligation Surgical History Gallbladder Removal Hospitalization History Surgery/child Hospitalization History [facility]
--- OUTSIDE RECORDS SUMMARY | 2017-04-23 10:41 | XMS REPORT ---
Author Author TERRANCE SARABIA Organization [facility] Address [address] [place] [address] Care Team Providers Care Skiagrapher Name Role Phone TERRANCE SARABIA Unavailable PROBLEMS Type Condition ICD9-CM Code SEX17-WE Code Onset Dates Condition Status SNOMED Code Problem Gastroesophageal reflux disease without esophagitis K21.9 Active 988865801 Problem Essential hypertension I10 Active 78732589 Problem Bipolar affective disorder, currently manic, mild F31.11 Active 394516980 Problem Obesity (BMI 30-39.9) E66.9 Active 653771023 Problem Missed period N92.6 Active 69856946 Problem Dysthymia F34.1 Active 95086999 Problem Personality disorder, unspecified F60.9 Active 50670583 Problem Unspecified mood [affective] disorder F39 Active 64052161 Problem Anxiety state, unspecified F41.1 Active 300132589 ALLERGIES No Information SOCIAL HISTORY Never Assessed PLAN OF CARE Activity Details Follow Up prn Reason: VITAL SIGNS MEDICATIONS Unknown Medications RESULTS No Results PROCEDURES Procedure Date Ordered Result Body Site Psychotherapy, patient &/family, 30 minutes, established patient Aug 26, 2016 IMMUNIZATIONS No Known Immunizations MEDICAL (GENERAL) HISTORY Type Description Date Medical History Hypertension Surgical History Tubal Ligation Surgical History Gallbladder Removal Hospitalization History Surgery/child Hospitalization History [facility]
--- NOTE | 2017-04-23 12:06 | Diagnostic Imaging Report ---
EXAMINATION: Left foot 1126. INDICATION: Injury ankle pain 3 views were obtained. There is no fracture, dislocation or acute bony abnormality evident. The osteophyte arising from the anterior tibial plafond and the calcified enthesophyte along the posterior aspect of the calcaneus seen on the prior exam of 04/10/16 are again evident and no different. The soft tissues are unremarkable. IMPRESSION: There is no evidence for an acute bony abnormality. Dictated by: Dictated on workstation # [id number]
--- NOTE | 2017-04-23 12:07 | Diagnostic Imaging Report ---
EXAMINATION: Left ankle, 3 views. COMPARISON: April 10, 2016. HISTORY: 27-year-old female, injury. Left ankle pain. Swelling in the region of the lateral malleolus. FINDINGS: There is degenerative type enthesophyte formation at the insertion of the Achilles tendon. There is a tiny calcaneal heel spur. There is no large ankle joint effusion. There are tiny tibiotalar osteophytes. The alignment of the ankle mortise is unremarkable. There is no identified acute fracture. IMPRESSION: 1. No identified acute bony abnormality of the left ankle. 2. Unremarkable alignment of the ankle mortise. 3. Degenerative type enthesophyte formation at the insertion of the Achilles tendon. 4. Tiny calcaneal heel spur. 5. Mild tibiotalar osteoarthritis. Dictated by: Dictated on workstation # [id number]
--- NOTE | 2017-04-23 12:27 | ED Lower Extremity ---
General Chief Complaint: Lower Extremity Stated Complaint: L FOOT/ANKLE INJ Nursing Triage Note: PT STEPPED OFF CURB YESTERDAY, INJURYING L ANKLE. STATES SHE COULDN'T GO TO WORK TODAY BECAUSE OF PAIN Nursing Sepsis Screen: No Definite Risk Source: patient Exam Limitations: no limitations History of Present Illness Time seen by provider: 12:23 Initial Comments The patient relates that she had a misstep yesterday while playing with her children. She has problems with both ankles but seemed to have injured her left ankle. There is been no swelling. She reported difficulty and walking today and was not able to work. Onset: yesterday Pain/Injury Location: left ankle Method of Injury: sports injury Allergies and Home Medications Allergies Uncoded Allergies: PCN (Allergy, Unknown, 04/10/16) Home Medications Ondansetron 4 Mg Tab.rapdis, 4 MG SL Q4H PRN for NAUSEA/VOMITING-1ST LINE, #10 Prescribed by: SARI CARIAS on 04/05/17 1410 [Otc Refulx Med] , (Reported) Constitutional: see HPI EENTM: no symptoms reported Respiratory: no symptoms reported Cardiovascular: no symptoms reported Gastrointestinal: no symptoms reported Musculoskeletal: joint pain Past Dkblhlg-Afzgcu-Tyekny Hx Patient Social History Alcohol Use: Occasionally Uses Recreational Drug Use: No Type Used: Cigarettes Recent Foreign Travel: No Contact w/Someone Who Travel: No Recent Infectious Disease Expo: No Recent Hopitalizations: No Physical Abuse: No Sexual Abuse: No Seasonal Allergies Seasonal Allergies: No Surgeries History of Surgeries: Yes Surgeries: Gallbladder, Tubal Ligation Respiratory History of Respiratory Disorde: No Cardiovascular History of Cardiac Disorders: Yes (DOES NOT TAKE MEDS) Cardiac Disorders: Valvular Heart Disease Neurological History of Neurological Disord: No Reproductive System Hx Reproductive Disorders: 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 Genitourinary History of Genitourinary Disor: No Gastrointestinal History of Gastrointestinal Di: Yes Gastrointestinal Disorders: Gastroesophageal Reflux Musculoskeletal History of Musculoskeletal Dis: No Endocrine History of Endocrine Disorders: No HEENT History of HEENT Disorders: No Cancer History of Cancer: No Psychosocial History of Psychiatric Problem: Yes Behavioral Health Disorders: PTSD Suicide Risk Score: 0 Integumentary History of Skin or Integumenta: No Family Medical History Significant Family History: Psychiatric Problems, Other Conditions/Hx Physical Exam Vital Signs Vital Sign - Last 12Hours 04/23/17 11:11 Temp 98.0 Pulse 91 Resp 17 B/P (MAP) 164/109 Pulse Ox 96 O2 Delivery Room Air Capillary Refill : Less Than 3 Seconds General Appearance: WD/WN, no apparent distress HEENT: normal ENT inspection Neck: full range of motion Cardiovascular: normal peripheral pulses, regular rate, rhythm, no edema, no gallop, no JVD, no murmur Respiratory: chest non-tender, lungs clear, normal breath sounds, no respiratory distress, no accessory muscle use Comments No swelling was noted at either ankle. There appeared to be impaired dorsi flexion with pain at the left ankle. Progress/Results/Core Measures Results/Orders My Orders Orders - CRISTI CASTANON MD Foot, Left, 3 Views (04/23/17 10:51) Ankle, Left, 3 Views (04/23/17 10:51) Vital Signs/I&O Vital Sign - Last 12Hours 04/23/17 11:11 Temp 98.0 Pulse 91 Resp 17 B/P (MAP) 164/109 Pulse Ox 96 O2 Delivery Room Air Blood Pressure Mean: 127 Departure Communication (Admissions) Progress Notes X-ray showed arthritic changes which shows seemed rather surprising given age. No fractures were noted Impression Impression: Primary Impression: left ankle pain/arthritic changes Disposition: 01 HOME, SELF-CARE Condition: Stable/Unchanged Departure-Patient Inst. Decision time for Depature: 12:26 Referrals: [facility] (PCP/Family) Primary Care Physician Patient Instructions: Ankle Sprain (DC) Add. Discharge Instructions: All discharge instructions reviewed with patient and/or family. Voiced understanding. Try hot soaks 4 times daily. Naproxen 222 tabs twice daily for the next week if needed CRISTI CASTANON MD Apr 23, 2017 12:27
[2017-04-23 12:33] VITALS: BP 162/100
== END 2017-04-23 12:33 | disposition home or self-care (01) ==
LOC: EDUNIT# 10:35 → ER 10:36
DX: M25.572 Pain in left ankle and joints of left foot (principal); K21.9 Gastro-esophageal reflux disease without esophagitis; F43.10 Post-traumatic stress disorder, unspecified; Z98.51 Tubal ligation status; X58.XXXA Exposure to other specified factors, initial encounter
CPT/HCPCS: 73610; 73630; 99282

== ENCOUNTER 2017-09-20 08:06 | Emergency (ER) | payer SELFPAY ==
[~2017-09-20] VITALS: Ht 160 cm; Wt 106.1 kg
[~2017-09-20 08:06] MED LIST changes: +NAPR-1070 PO; -NAPR550T PO
[2017-09-20] MEDS ORDERED: OXCA300T (08:28)
[2017-09-20] MEDS ORDERED: LISI-552 (08:28)
[2017-09-20] MEDS ORDERED: DULO20CA18 (08:28)
[2017-09-20] MEDS ORDERED: RT-ALBUTEROL/IPRATROPIUM 3 ML (DUONEB) VIAL INH ONE (09:30)
--- NOTE | 2017-09-20 10:21 | Diagnostic Imaging Report ---
Indication: Cough. Comparison: 04/11/2017 Findings: Two views of the chest were obtained. Heart size is normal. The pulmonary vessels appear unremarkable. There is no pneumothorax, mediastinal widening or pleural fluid. Lungs are clear. The osseous structures appear unremarkable. Impression: Negative chest. Dictated by: Dictated on workstation # [id number]
[2017-09-20] MEDS ORDERED: RT-ALBUINH IH (10:45)
[2017-09-20] MEDS ORDERED: PRD20T PO (10:45)
[2017-09-20] MEDS ORDERED: HYDR25TA4 PO (10:45)
--- NOTE | 2017-09-20 10:45 | ED General ---
General Chief Complaint: General Problems/Pain Stated Complaint: LEFT ARM PAIN, BACK PAIN,NAUSEA Nursing Triage Note: AMB TO ROOM C/O COUGH CONGESTION FOR 1 MONTH AND ONSET OF L RIB PAIN YEATERDAY Nursing Sepsis Screen: No Definite Risk Source of Information: Patient Exam Limitations: No Limitations History of Present Illness Date Seen by Provider: Sep 20, 2017 Time Seen by Provider: 09:18 Initial Comments This 27-year-old young lady presents to the emergency room with congestion 1 month. She developed left lateral chest wall pain yesterday as well as left arm discomfort. The arm discomfort is better today but the chest wall pain is worse. There are no alleviating or exacerbating factors to her pain. She has had cough, some shortness of air, and nausea. Cough has been present for about 2 months. Patient is notably hypertensive and admits she did not take her blood pressure medication this morning. She is a patient of Edda Hdez at [facility]. Allergies and Home Medications Allergies Uncoded Allergies: PCN (Allergy, Unknown, 04/10/16) Home Medications Albuterol Sulfate 1 Puff Puff, 1-4 PUFF IH Q4H PRN for SHORTNESS OF BREATH 1 PUFF = 90 MCG Prescribed by: SARI CARIAS on 09/20/17 1045 Hydrochlorothiazide 25 Mg Tablet, 25 MG PO DAILY Prescribed by: SARI CARIAS on 09/20/17 1045 Prednisone 20 Mg Tab, 20 MG PO DAILY Prescribed by: SARI CARIAS on 09/20/17 1045 Patient Home Medication List Home Medication List Reviewed: Yes Constitutional: no symptoms reported EENTM: see HPI Respiratory: see HPI Cardiovascular: no symptoms reported Gastrointestinal: see HPI Genitourinary: no symptoms reported : No Musculoskeletal: see HPI Skin: no symptoms reported Psychiatric/Neurological: No Symptoms Reported Hematologic/Lymphatic: No Symptoms Reported Past Mjbizmq-Mwnoui-Ocaami Hx Patient Social History Alcohol Use: Occasionally Uses Recreational Drug Use: No Smoking Status: Current Everyday Smoker Type Used: Cigarettes Recent Foreign Travel: No Contact w/Someone Who Travel: No Recent Infectious Disease Expo: No Recent Hopitalizations: No Seasonal Allergies Seasonal Allergies: No Surgeries History of Surgeries: Yes Surgeries: Gallbladder, Tubal Ligation Respiratory History of Respiratory Disorde: No Cardiovascular History of Cardiac Disorders: Yes Cardiac Disorders: Hypertension, Valvular Heart Disease Neurological History of Neurological Disord: No Reproductive System : No 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 Genitourinary History of Genitourinary Disor: No Gastrointestinal History of Gastrointestinal Di: Yes Gastrointestinal Disorders: Gastroesophageal Reflux Musculoskeletal History of Musculoskeletal Dis: No Endocrine History of Endocrine Disorders: No HEENT History of HEENT Disorders: No Cancer History of Cancer: No Psychosocial History of Psychiatric Problem: Yes Behavioral Health Disorders: PTSD, Bipolar Integumentary History of Skin or Integumenta: No Family Medical History Significant Family History: Psychiatric Problems, Other Conditions/Hx Physical Exam Vital Signs Vital Signs - First Documented 09/20/17 09/20/17 09/20/17 08:10 09:46 10:47 Temp 97.7 Pulse 95 Resp 18 B/P (MAP) 187/106 (133) Pulse Ox 96 O2 Delivery Room Air Capillary Refill : Less Than 3 Seconds General Appearance: No Apparent Distress, WD/WN HEENT: PERRL/EOMI, TMs Normal, Normal ENT Inspection, Pharynx Normal Neck: Normal Inspection, Tender Lateral Respiratory: No Accessory Muscle Use, No Respiratory Distress, Pleural Rub, Wheezing, Other (Left lateral chest wall tender to palpation) Cardiovascular: Regular Rate, Rhythm, No Edema, No Murmur Gastrointestinal: Non Tender, Soft Extremity: Normal Capillary Refill, Normal Inspection, Normal Range of Motion, Non Tender, No Pedal Edema Neurologic/Psychiatric: Alert, Oriented x3, No Motor/Sensory Deficits, Normal 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, 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 Skin: Normal Color, Warm/Dry Progress/Results/Core Measures Suspected Sepsis Recent Fever Within 48 Hours: No Infection Criteria Present: None New/Unexplained Altered Menta: No Sepsis Screen: No Definite Risk Sepsis Diagnosis: SIRS Temperature:97.7 Pulse: 95 Respiratory Rate: Blood Pressure 187 /106 Mean: 133 Results/Orders My Orders Orders - SARI LEONG MD Albuterol/Ipra Inhalation Soln (Duoneb I (09/20/17 09:30) Chest Pa/Lat (2 View) (09/20/17 09:30) Svn Sm Volume Nebulizer Rt-Rfs (09/20/17 09:30) Medications Given in ED Current Medications Medications Dose Ordered Sig/Abhilash Route Start Time Stop Time Status Last Admin Dose Admin Albuterol/ Ipratropium 3 ml ONCE ONCE INH 09/20/17 09:30 09/20/17 09:31 DC 09/20/17 09:45 3 ML Vital Signs/I&O Vital Sign - Last 12Hours 09/20/17 09/20/17 09/20/17 08:10 09:46 10:47 Temp 97.7 Pulse 95 82 Resp 18 B/P (MAP) 187/106 (133) 191/101 Pulse Ox 96 98 O2 Delivery Room Air Room Air Room Air Capillary Refill : Less Than 3 Seconds Blood Pressure Mean: 133 Progress Note : Progress Note Patient received a DuoNeb treatment which did improve her breathing some. Chest x-ray was unremarkable. Patient was advised to quit smoking and was referred to smoking cessation class. See discharge instructions. Diagnostic Imaging Diagonstic Imaging: Xray Plain Films/CT/US/NM/MRI: chest Comments Chest x-ray viewed by me and report reviewed. See report below: NAME: CHRISTOPHER GRAFF [facility] REC#: [id number] PT STATUS: REG ER : 1990 PHYSICIAN: SARI LEONG MD ADMIT DATE: 09/20/17/ER Signed Date of Exam: 09/20/17 CHEST PA/LAT (2 VIEW) Indication: Cough. Comparison: 04/11/2017 Findings: Two views of the chest were obtained. Heart size is normal. The pulmonary vessels appear unremarkable. There is no pneumothorax, mediastinal widening or pleural fluid. Lungs are clear. The osseous structures appear unremarkable. Impression: Negative chest. Dictated by: Dictated on workstation # [id number] Dict: 09/20/17 1019 Trans: 09/20/17 1031 Interpreted by: YEN WISDOM DO Electronically signed by: YEN WISDOM DO 09/20/17 1031 Departure Impression Impression: Primary Impression: Acute bronchitis Qualified Codes: J20.9 - Acute bronchitis, unspecified Additional Impressions: Chest wall pain Hypertension Qualified Codes: I10 - Essential (primary) hypertension Pain in left arm Disposition: 01 HOME, SELF-CARE Condition: Improved Departure-Patient Inst. Decision time for Depature: 10:30 Referrals: [facility] (PCP/Family) Primary Care Physician Patient Instructions: Acute Bronchitis in Adults, SMOKING CESSATION Add. Discharge Instructions: For your pain take ibuprofen up to 600 mg every 6 hours as needed. Add Tylenol (acetaminophen) up to 1000 mg every 6 hours as needed for additional relief. If your breathing and pain are not improving by tomorrow morning, fill the prednisone prescription and complete as prescribed. Fill your inhaler and use it as prescribed. Follow-up with your primary care provider in 1 to 2 weeks for further assessment of your blood pressure and your bronchitis. Return to the emergency room if symptoms worsen, especially if you have respiratory distress or fever greater than 100. Add hydrochlorothiazide as prescribed to your present blood pressure medication. All discharge instructions reviewed with patient and/or family. Voiced understanding. Scripts Hydrochlorothiazide (Hydrochlorothiazide) 25 Mg Tablet 25 MG PO DAILY, #30 TAB Prov: SARI LEONG MD 09/20/17 Prednisone (Prednisone) 20 Mg Tab 20 MG PO DAILY, #4 TAB Prov: SARI LEONG MD 09/20/17 Albuterol Sulfate (PROAIR HFA) 1 Puff Puff 1-4 PUFF IH Q4H Y for SHORTNESS OF BREATH, #1 PUFF 1 PUFF = 90 MCG Prov: SARI LEONG MD 09/20/17 SARI LEONG MD Sep 20, 2017 10:45
[2017-09-20 10:47] VITALS: BP 191/101
== END 2017-09-20 10:47 | disposition home or self-care (01) ==
LOC: EDUNIT# 08:06 → ER 08:08
DX: J20.9 Acute bronchitis, unspecified (principal); I10 Essential (primary) hypertension; M79.602 Pain in left arm; F31.9 Bipolar disorder, unspecified; F43.10 Post-traumatic stress disorder, unspecified; K21.9 Gastro-esophageal reflux disease without esophagitis; F17.210 Nicotine dependence, cigarettes, uncomplicated; Z98.51 Tubal ligation status; Z79.52 Long term (current) use of systemic steroids; Z86.79 Personal history of other diseases of the circulatory system; Z88.0 Allergy status to penicillin
CPT/HCPCS: 71046; 94640